=== PATIENT | female | born 1980 ===

== ENCOUNTER 2017-10-15 15:40 | Emergency (ER) | payer MEDICAID ==
[2017-10-15 15:41] VITALS: BMI 28.8
[2017-10-15 16:19] VITALS: BP 137/96; PULSE 71; RESP 20; TEMP 97.7; O2SAT 98
--- NOTE | 2017-10-15 17:35 | ED PDOC ---
HPI: General Adult Time Seen by Provider: 10/15/17 17:06 Chief Complaint (Nursing): Lower Extremity Problem/Injury Chief Complaint (Provider): Rigth calf cramping History Per: Patient History/Exam Limitations: no limitations Onset/Duration Of Symptoms: Days (3-4 days) Current Symptoms Are (Timing): Still Present Additional Complaint(s): 36 year old female presents to the emergency department with an atraumatic right calf cramping x3-4 days that worsens at night. Denies shortnress of breath , chest pain, hemoptysis, numbness, tingling, and history of deep vein thrombosis (DVT) or pulmonary embolism (PE). Patient states she had varicose vein surgery about 2-3 years ago. PMD: Dr. Brian Batista MD Past Medical History Reviewed: Historical Data, Nursing Documentation, Vital Signs Vital Signs: Last Vital Signs Temp 97.7 F 10/15/17 16:15 Pulse 71 10/15/17 16:15 Resp 20 10/15/17 16:15 BP 137/96 H 10/15/17 16:15 Pulse Ox 98 10/15/17 18:57 - Medical History PMH: Anxiety, Arthritis, Back Problems, Depression, Chronic Pain Denies: Diabetes, Hepatitis, HIV, HTN, Chronic Kidney Disease, Seizures, Sexually Transmitted Disease - Surgical History Other surgeries: Varicose Vein surgery - Family History Family History: States: Unknown Family Hx - Social History Current smoker - smoking cessation education provided: Yes Alcohol: None Drugs: Denies - Home Medications Home Medications: Ambulatory Orders Medication Instructions Recorded Cyclobenzaprine [Cyclobenzaprine 10 mg PO PRN PRN 12/15/15 HCl] Cyclobenzaprine [Flexeril] 5 mg PO Q6H PRN #60 tab 12/19/15 Docusate [Colace] 100 mg PO DAILY #30 cap 12/19/15 Ferrous Sulfate [Feosol] 325 mg PO TID #90 tab 12/19/15 Gabapentin [Neurontin] 300 mg PO TID #90 cap 12/19/15 hydrOXYzine HCl [Atarax] 25 mg PO Q4H PRN #30 tab 12/19/15 traZODone [Desyrel] 100 mg PO HS PRN #30 tab 12/19/15 - Allergies Allergies/Adverse Reactions: Allergies Allergy/AdvReac Type Severity Reaction Status Date / Time No Known Allergies Allergy Verified 10/15/17 16:15 Review of Systems ROS Statement: Except As Marked, All Systems Reviewed And Found Negative (As per HPI, otherwise negative) Constitutional: Negative for: Other (Hx of DVT or PE) Cardiovascular: Negative for: Chest Pain Respiratory: Negative for: Shortness of Breath, Hemoptysis Musculoskeletal: Positive for: Other (Right calf cramping) Neurological: Negative for: Numbness (tingling) Physical Exam - Reviewed Nursing Documentation Reviewed: Yes Vital Signs Reviewed: Yes - Physical Exam Appears: Positive for: No Acute Distress Head Exam: Positive for: NORMAL INSPECTION Skin: Positive for: Normal Color, Warm, Dry Cardiovascular/Chest: Positive for: Regular Rate, Rhythm. Negative for: Murmur Respiratory: Positive for: Normal Breath Sounds. Negative for: Accessory Muscle Use, Respiratory Distress Pulses-Dorsalis Pedis (L): 2+ Pulses-Dorsalis Pedis (R): 2+ Extremity: Positive for: Normal ROM, Other (positive varicose veins to right leg ; R leg without swelling, tenderness, or break in skin integrity). Negative for : Pedal Edema, Calf Tenderness, Swelling Neurologic/Psych: Positive for: Alert, Oriented (x3), Gait (Steady). Negative for: Motor/Sensory Deficits, Facial Droop - ECG O2 Sat by Pulse Oximetry: 98 (RA) Pulse Ox Interpretation: Normal Medical Decision Making Medical Decision Making: Time: 1733 Initial impression: Right calf cramping Initial plan: --Duplex US --Reevaluation Time: 1810 --Duplex US FINDINGS: COMMON FEMORAL VEIN: Unremarkable. SUPERFICIAL FEMORAL VEIN: Unremarkable. POPLITEAL VEIN: Unremarkable. POSTERIOR TIBIAL VEIN: Unremarkable. OTHER FINDINGS: None. IMPRESSION: No evidence of deep venous thrombosis in the right lower extremity. Time: 1833 --Naprosyn 500 mg PO Time: 1840 --Patient is medically stable for discharge. Advised to follow up with PMD. Clinical Impression: Calf Pain Scribe Attestation: Documented by Sol Simmons, acting as a scribe for Dontae Mast PA-C Provider Scribe Attestation: All medical record entries made by the Scribe were at my direction and personally dictated by me. I have reviewed the chart and agree that the record accurately reflects my personal performance of the history, physical exam, medical decision making, and the department course for this patient. I have also personally directed, reviewed, and agree with the discharge instructions and disposition. Disposition - Clinical Impression Clinical Impression: Calf pain - Patient ED Disposition Is Patient to be Admitted: No Counseled Patient/Family Regarding: Need For Followup - Disposition Disposition: Routine/Home Disposition Time: 18:41 Condition: STABLE Instructions: Leg Pain (ED) Forms: [facility] (Luxembourgish) Print Language: SINHALA
--- NOTE | 2017-10-15 18:13 | US ---
PROCEDURE: Right lower extremity venous duplex Doppler. HISTORY: pain COMPARISON: None available. TECHNIQUE: Common femoral, superficial femoral, popliteal and posterior tibial veins were evaluated. Flow was assessed with color Doppler, compressibility, assessment of phasic flow and augmentation response. FINDINGS: COMMON FEMORAL VEIN: Unremarkable. SUPERFICIAL FEMORAL VEIN: Unremarkable. POPLITEAL VEIN: Unremarkable. POSTERIOR TIBIAL VEIN: Unremarkable. OTHER FINDINGS: None. IMPRESSION: No evidence of deep venous thrombosis in the right lower extremity.
[2017-10-15] MEDS ORDERED: Naproxen 500 MG TAB PO ONE (18:34)
== END 2017-10-15 18:44 | disposition home or self-care (01) ==
LOC: H.ER 15:40
DX: M79.606 Pain in leg, unspecified (principal); F41.9 Anxiety disorder, unspecified; F32.9 Major depressive disorder, single episode, unspecified; G89.29 Other chronic pain